=== PATIENT | male | born 1960 | race Caucasian/White ===

== ENCOUNTER 2020-07-21 06:50 | Emergency (ER) | payer OTHER ==
[~2020-07-21] VITALS: Ht 188 cm; Wt 96.2 kg
[2020-07-21 06:52] VITALS: BP 120/86
[2020-07-21] MEDS ORDERED: PROAIR DIGIHAL90 MCG INH (07:10)
[2020-07-21] MEDS ORDERED: LIPITOR 20 MG T20 M1 PO (07:10)
[2020-07-21] MEDS ORDERED: LORATIDINE 10 M10 M1 PO (07:11)
[2020-07-21] MEDS ORDERED: FLOVENT HFA 4444 MCG INH (07:11)
[2020-07-21] MEDS ORDERED: ONDANSETRON ODT4 MG PO (07:11)
[2020-07-21] MEDS ORDERED: PERCOCET 5-3251 EACH PO (07:12)
[2020-07-21] MEDS ORDERED: NASACORT10.8 ML NARES (07:12)
[2020-07-21 08:06] LABS: URINE BILIRUBIN NEGATIVE (Negative); URINE BLOOD 1+ (Negative); URINE CLARITY CLEAR; URINE COLOR YELLOW; URINE GLUCOSE-RANDOM* NEGATIVE (Negative); URINE KETONES NEGATIVE (Negative); URINE LEUKOCYTES-REFLEX NEGATIVE (Negative); URINE NITRITE-REFLEX NEGATIVE (Negative); URINE PROTEIN (DIPSTICK) NEGATIVE (Negative); URINE UROBILINOGEN 0.2 E.U./dl (0.2-1.0)
[2020-07-21 08:21] LABS: CASTS None Seen /LPF (None Seen); CRYSTALS None Seen /LPF (None Seen); SQUAMOUS None Seen /LPF (0-3)
[2020-07-21 08:22] LABS: BACTERIA-REFLEX 1-9 Few /HPF (None Seen); URINE RBC 3-10 Few /HPF (0-2); URINE WBC-REFLEX 0-5 Rare /HPF (0-5)
== END 2020-07-21 07:55 | disposition home or self-care (01) ==
LOC: ER 06:50
PROVIDERS: Emergency Medicine
DX: S42.002A Fracture of unspecified part of left clavicle, initial encounter for closed fracture (principal); N40.0 Benign prostatic hyperplasia without lower urinary tract symptoms; R33.9 Retention of urine, unspecified; J45.909 Unspecified asthma, uncomplicated; Z88.0 Allergy status to penicillin; V29.9XXA Motorcycle rider (driver) (passenger) injured in unspecified traffic accident, initial encounter; Y93.89 Activity, other specified; Y92.89 Other specified places as the place of occurrence of the external cause; Y99.8 Other external cause status